=== PATIENT | female | born 1965 | race Caucasian/White ===

== ENCOUNTER 2018-06-26 11:32 | Emergency (ER) | payer BC, MEDICARE ==
--- NOTE | 2018-06-26 12:59 | EDM.PDOC ---
Scribed by Paola Kelly 06/26/18 1242 for Rakesh Fuentes MD ED HPI GENERAL MEDICAL PROBLEM - General Chief Complaint: Fever Stated Complaint: flu [id number] Time Seen by Provider: 06/26/18 11:54 Source of Information: Reports: Patient, RN, RN Notes Reviewed History Limitations: Reports: No Limitations - History of Present Illness INITIAL COMMENTS - FREE TEXT/NARRATIVE: Patient presents to ER with complaint of onset of fever, chills, generalized body aches, clear runny nose, cough and scratchy throat yesterday and worse today. No nausea or vomiting. She is on immunosuppress treatment for RA. Son had similar symptoms last week and she was exposed to him. Duration: Day(s): (1) Location: Reports: Generalized Quality: Reports: Ache Severity: Moderate Improves with: Reports: None Worsens with: Reports: None Context: Reports: Sick Contact Associated Symptoms: Reports: No Other Symptoms Headache Pain Score (Numeric/FACES): 3 - Related Data Allergies Allergy/AdvReac Type Severity Reaction Status Date / Time adhesive tape Allergy Blisters Verified 06/26/18 11:46 doxycycline Allergy unknown Verified 06/26/18 11:46 hydroxychloroquine Allergy unknown Verified 06/26/18 11:46 infliximab [From Remicade] Allergy Rash Verified 06/26/18 11:46 prednisone Allergy Other Verified 06/26/18 11:46 sertraline Allergy unknown Verified 06/26/18 11:46 tocilizumab Allergy Swelling Verified 06/26/18 11:46 Home Meds: Home Meds Acyclovir [Zovirax] 400 mg PO DAILY 06/26/18 [History] Amitriptyline [Elavil] 50 mg PO BEDTIME 06/26/18 [History] Aspirin [Halfprin] 81 mg PO DAILY 06/26/18 [History] Atenolol 25 mg PO DAILY 06/26/18 [History] Fish Oil/DHA/EPA [Fish Oil 1,200 MG] 1,600 mg PO DAILY 06/26/18 [History] Pantoprazole [ProTONIX] 40 mg PO ASDIRECTED 06/26/18 [History] Tofacitinib Citrate [Xeljanz Xr] 11 mg PO DAILY 06/26/18 [History] atorvaSTATin [Lipitor] 20 mg PO BEDTIME 06/26/18 [History] Past Medical History Cardiovascular History: Reports: High Cholesterol, Hypertension Gastrointestinal History: Reports: GERD Musculoskeletal History: Reports: RA Social & Family History - Family History Family Medical History: Noncontributory - Tobacco Use Smoking Status *Q: Never Smoker - Alcohol Use Alcohol Use History: No - Recreational Drug Use Recreational Drug Use: No - Living Situation & Occupation Living situation: Reports: with Family ED ROS GENERAL - Review of Systems Review Of Systems: ROS reveals no pertinent complaints other than HPI. ED EXAM, GENERAL - Physical Exam Exam: See Below Exam Limited By: No Limitations General Appearance: Alert, WD/WN, No Apparent Distress, Other (Acutely ill, but non-toxic appearing) Eye Exam: Bilateral Eye: Normal Inspection Ears: Normal External Exam, Normal Canal, Hearing Grossly Normal, Normal TMs Nose: Clear Rhinorrhea, Other (Small amount of dried blood in nare.) Throat/Mouth: Normal Inspection, Normal Lips, Normal Teeth, Normal Gums, Normal Oropharynx, Normal Voice, No Airway Compromise, Other (Clear postnasal drip) Head: Atraumatic, Normocephalic Neck: Normal Inspection, Supple, Non-Tender, Full Range of Motion Respiratory/Chest: No Respiratory Distress, No Accessory Muscle Use, Chest Non- Tender, Crackles Cardiovascular: Regular Rate, Rhythm, No Edema, Tachycardia GI/Abdominal: Normal Bowel Sounds, Soft, Non-Tender, No Distention Back Exam: Normal Inspection Extremities: Normal Inspection, Normal Range of Motion, Non-Tender, Normal Capillary Refill, No Pedal Edema Neurological: Alert, Oriented, CN II-XII Intact, Normal Cognition, Normal Gait, No Motor/Sensory Deficits Psychiatric: Normal Affect, Normal Mood Skin Exam: Warm, Dry, Intact, Normal Color, No Rash Course - Vital Signs Last Recorded V/S: Last Vital Signs Temp 37.3 C 06/26/18 11:38 Pulse 107 H 06/26/18 11:52 Resp 16 06/26/18 11:52 BP 109/76 06/26/18 11:52 Pulse Ox 96 06/26/18 11:52 - Orders/Labs/Meds Orders: Active Orders 24 hr Category Date Time Status CULTURE STREP A CONFIRMATION [RM] Stat Lab 06/26/18 12:05 Results STREP SCRN A RAPID W CULT CONF [RM] Stat Lab 06/26/18 12:05 Results Labs: Rapid strep: Negative. Departure - Departure Time of Disposition: 12:37 Disposition: Home, Self-Care 01 Condition: Good Clinical Impression: Influenza, Epistaxis - Discharge Information *PRESCRIPTION DRUG MONITORING PROGRAM REVIEWED*: Not Applicable *COPY OF PRESCRIPTION DRUG MONITORING REPORT IN PATIENT SEDA: Not Applicable Instructions: Influenza, Adult, [id number], Nosebleed, Adult Referrals: PCP,None [Primary Care Provider] - Forms: ED Department Discharge Additional Instructions: Rx: Tamiflu 75mg Use over the counter Acetaminophen (Tylenol) or Ibuprofen (Motrin/Advil) as needed for fevers (follow directions on package label for dosing and precautions ). Rest, and drink plenty of fluids. If nose bleeds again use 2 large sprays of over the counter Afrin spray and pinch your nose with firm pressure for at least 15 minutes. If bleeding doesn't stop within 30 minutes then return to the ER. Follow up in clinic for recheck if fever and viral symptoms do not resolve in the next 10 days. Return to ER if any breathing difficulties develop. - My Orders Last 24 Hours: My Active Orders 06/26/18 12:05 CULTURE STREP A CONFIRMATION [RM] Stat STREP SCRN A RAPID W CULT CONF [RM] Stat - Assessment/Plan Last 24 Hours: My Active Orders 06/26/18 12:05 CULTURE STREP A CONFIRMATION [RM] Stat STREP SCRN A RAPID W CULT CONF [RM] Stat I have read and agree with the documentation that has been completed regarding this visit. By signing this record, I attest that the documentation was completed in my physical presence and is an accurate record of the encounter.
== END 2018-06-26 12:59 | disposition home or self-care (01) ==
LOC: DL.ED 11:32
DX: J11.1 Influenza due to unidentified influenza virus with other respiratory manifestations (principal); R04.0 Epistaxis; E78.00 Pure hypercholesterolemia, unspecified; I10 Essential (primary) hypertension; K21.9 Gastro-esophageal reflux disease without esophagitis; Z88.8 Allergy status to other drugs, medicaments and biological substances; Z88.1 Allergy status to other antibiotic agents; Z79.899 Other long term (current) drug therapy
CPT/HCPCS: 87081; 87430; 99284

== ENCOUNTER 2020-05-28 14:23 | Inpatient (IN) | payer BC, MEDICARE ==
[2020-05-28 15:34] LABS: ANION GAP 15.1 mEq/L (7-13); CHLORIDE,CL 99 mmol/L (98-107); SODIUM,NA 134 mmol/L (136-145)
--- NOTE | 2020-05-28 16:10 | EDM.PDOC ---
ED HPI GENERAL MEDICAL PROBLEM - General Chief Complaint: Respiratory Problem Stated Complaint: SENT FROM [facility] Time Seen by Provider: 05/28/20 14:25 Source of Information: Reports: Patient, RN, RN Notes Reviewed History Limitations: Reports: No Limitations - History of Present Illness INITIAL COMMENTS - FREE TEXT/NARRATIVE: Patient is a 55-year-old female who presents to ER from [facility] with complaint of shortness of breath. Patient states COVD symptoms that began on 05/20/20 and tested on 05/21/20. On 05/23/20 patient was seen in the ER for COVID, had chest CT that day. Patient presents to clinic today with increased shortness of breath. 02 sats 87-89.1 on room air--not on 02 at baseline. States no abdominal pain, denies any bloody stool since 05/23/20. She has shortness of breath, chest pains from time to time. No fever, chills, nausea, vomiting and diarrhea. Onset: Gradual Duration: Getting Worse Location: Reports: Generalized Quality: Reports: Ache Severity: Severe Improves with: Reports: None Worsens with: Reports: None Associated Symptoms: Reports: No Other Symptoms - Related Data Allergies Allergy/AdvReac Type Severity Reaction Status Date / Time adhesive tape Allergy Blisters Verified 05/28/20 16:16 doxycycline Allergy Rash Verified 05/28/20 16:16 infliximab [From Remicade] Allergy Anaphylactic Verified 05/28/20 16:16 Shock tocilizumab Allergy Anaphylactic Verified 05/28/20 16:16 Shock hydroxychloroquine AdvReac increased Verified 05/28/20 16:16 liver enzymes prednisone AdvReac Other Verified 05/28/20 16:16 sertraline AdvReac Headache Verified 05/28/20 16:16 Home Meds: Home Meds Acyclovir [Zovirax] 400 mg PO DAILY 06/26/18 [History] Amitriptyline [Elavil] 50 mg PO BEDTIME 06/26/18 [History] Aspirin [Halfprin] 81 mg PO DAILY 06/26/18 [History] Fish Oil/DHA/EPA [Fish Oil 1,200 MG] 1,600 mg PO DAILY 06/26/18 [History] Tofacitinib Citrate [Xeljanz Xr] 11 mg PO DAILY 06/26/18 [History] atenoloL [Atenolol] 25 mg PO DAILY 06/26/18 [History] Budesonide [Pulmicort Flexhaler] 90 mcg INH BID 05/28/20 [History] Famotidine [Pepcid] 40 mg PO DAILY 05/28/20 [History] Ondansetron [Ondansetron ODT] 4 mg PO Q8HR PRN 05/28/20 [History] Rosuvastatin Calcium [Crestor] 40 mg PO DAILY 05/28/20 [History] Past Medical History HEENT History: Reports: None Cardiovascular History: Reports: High Cholesterol, Hypertension Other Cardiovascular History: has a rapid pulse and low blood pressure Respiratory History: Reports: Bronchitis, Recurrent, Pneumonia, Recurrent Gastrointestinal History: Reports: GERD, Hemorrhoids Genitourinary History: Reports: None Musculoskeletal History: Reports: RA Neurological History: Reports: None Psychiatric History: Reports: None Endocrine/Metabolic History: Reports: None Hematologic History: Reports: None Immunologic History: Reports: None Oncologic (Cancer) History: Reports: None Dermatologic History: Reports: None - Infectious Disease History Infectious Disease History: Reports: Chicken Pox, Novel Coronavirus, Shingles - Past Surgical History Head Surgeries/Procedures: Reports: None GI Surgical History: Reports: Colonoscopy Female Surgical History: Reports: Section, Hysterectomy Other Female Surgeries/Procedures: miscarriage Social & Family History - Family History Family Medical History: No Pertinent Family History - Tobacco Use Tobacco Use Status *Q: Never Tobacco User - Caffeine Use Caffeine Use: Reports: None Other Caffeine Use: vickie - Recreational Drug Use Recreational Drug Use: No - Living Situation & Occupation Living situation: Reports: with Family ED ROS GENERAL - Review of Systems Review Of Systems: Comprehensive ROS is negative, except as noted in HPI. ED EXAM, GENERAL - Physical Exam Exam: See Below Exam Limited By: No Limitations General Appearance: Alert, WD/WN, No Apparent Distress Eye Exam: Bilateral Eye: EOMI, Normal Inspection, PERRL Ears: Normal External Exam, Normal Canal, Hearing Grossly Normal, Normal TMs Nose: Normal Inspection, Normal Mucosa, No Blood Throat/Mouth: Normal Inspection, Normal Lips, Normal Teeth, Normal Gums, Normal Oropharynx, Normal Voice, No Airway Compromise Head: Atraumatic, Normocephalic Neck: Normal Inspection, Supple, Non-Tender, Full Range of Motion Respiratory/Chest: Crackles (bases bilaterally) Cardiovascular: Normal Peripheral Pulses, Regular Rate, Rhythm, No Edema, No Gallop, No JVD, No Murmur, No Rub GI/Abdominal: Normal Bowel Sounds, Soft, Non-Tender, No Organomegaly, No Distention, No Abnormal Bruit, No Mass (Female) Exam: Deferred Rectal (Female) Exam: Deferred Back Exam: Normal Inspection, Full Range of Motion, NT Extremities: Normal Inspection, Normal Range of Motion, Non-Tender, Normal Capillary Refill, No Pedal Edema Neurological: Alert, Oriented, CN II-XII Intact, Normal Cognition, Normal Gait, Normal Reflexes, No Motor/Sensory Deficits Psychiatric: Normal Affect, Normal Mood Skin Exam: Warm, Dry, Intact, Normal Color, No Rash Lymphatic: No Adenopathy Course - Vital Signs Last Recorded V/S: Last Vital Signs Temp 97.1 F 05/28/20 16:26 Pulse 91 05/28/20 16:26 Resp 22 H 05/28/20 16:26 BP 114/72 05/28/20 16:26 Pulse Ox 95 05/28/20 16:26 - Orders/Labs/Meds Orders: Active Orders 24 hr Category Date Time Status CULTURE BLOOD [BC] Stat Lab 05/28/20 14:45 Received CULTURE BLOOD [BC] Stat Lab 05/28/20 14:50 Received UA W/STEWART RFLX IF INDICATED [URIN] Stat Lab 05/28/20 14:38 Ordered Blood Culture x2 Reflex Set [OM.PC] Stat Oth 05/28/20 14:38 Ordered Medication Orders Acetaminophen (Tylenol) 650 mg PO Q4H PRN PRN Reason: Pain (Mild 1-3)/fever Albuterol (Proventil Hfa) 0 gm INH QID [facility] Amitriptyline HCl (Elavil) 50 mg PO BEDTIME [facility] Aspirin (Halfprin) 81 mg PO DAILY [facility] Atenolol (Tenormin) 25 mg PO DAILY [facility] Dexamethasone (Decadron) 6 mg IVPUSH DAILY [facility] Stop: 06/06/20 09:01 Docusate Sodium (Colace) 100 mg PO BID PRN PRN Reason: Constipation Enoxaparin Sodium (Lovenox) 40 mg SUBCUT DAILY [facility] Famotidine (Pepcid) 40 mg PO DAILY [facility] Sodium Chloride (Normal Saline) 1,000 mls @ 75 mls/hr IV ASDIRECTED [facility] Remdesivir 100 mg/ Sodium (Chloride) 100 mls @ 100 mls/hr IV Q24H [facility] Stop: 06/01/20 20:59 Levofloxacin/Dextrose 500 mg/ (Premix) 100 mls @ 100 mls/hr IV Q24H [facility] Remdesivir 200 mg/ Sodium (Chloride) 210 mls @ 210 mls/hr IV ONETIME ONE Stop: 05/28/20 20:59 Non-Formulary Medication (Budesonide [Pulmicort Flexhaler]) 90 mcg INH BID [facility] Ondansetron HCl (Zofran Odt) 4 mg PO Q4H PRN PRN Reason: nausea, able to take PO Oxycodone HCl (Oxycodone) 5 mg PO Q4H PRN PRN Reason: Pain (moderate 4-6) Labs: Laboratory Tests 05/28/20 05/28/20 05/28/20 Range/Units 14:50 14:50 14:50 WBC 9.4 (5.0-10.0) 10^3/uL RBC 4.10 L (4.2-5.4) 10^6/uL Hgb 11.9 L (12.0-16.0) g/dL Hct 34.7 L (37.0-47.0) % MCV 84.6 (80-100) fL MCH 29.0 (27.0-34.0) pg MCHC 34.3 (33.0-35.0) g/dL Plt Count 247 D (150-450) 10^3/uL Neut % (Auto) 81.6 H (42.2-75.2) % Lymph % (Auto) 5.3 L (20.5-50.1) % Preston % (Auto) 13.0 H (2-8) % Eos % (Auto) 0.0 L (1.0-3.0) % Baso % (Auto) 0.1 (0.0-1.0) % Add Manual Diff Yes Neutrophils % (Manual) 77 H (42-75) % Band Neutrophils % 7 % Lymphocytes % (Manual) 6 L (20-50) % Monocytes % (Manual) 9 H (2-8) % Metamyelocytes % 1 Polychromasia 1+ slight PT 9.8 (9.0-12.0) SEC INR 1.0 (0.9-1.2) D-Dimer, Quantitative (0-400) ng/mL Sodium 134 L (136-145) mmol/L Potassium 4.1 (3.5-5.1) mmol/L Chloride 99 (98-107) mmol/L Carbon Dioxide 24 (21-32) mmol/L Anion Gap 15.1 H (7-13) mEq/L BUN 16 (7-18) mg/dL Creatinine 0.93 (0.55-1.02) mg/dL Est Cr Clr Drug Dosing 73.04 mL/min Estimated GFR (MDRD) > 60 BUN/Creatinine Ratio 17.2 (No establ ref range) Glucose 107 H (74-99) mg/dL Lactic Acid (0.4-2.0) mmol/L Calcium 8.5 (8.5-10.1) mg/dL Total Bilirubin 0.4 (0.2-1.0) mg/dL AST 33 (15-37) U/L ALT 71 H (14-59) U/L Alkaline Phosphatase 64 (46-116) U/L Lactate Dehydrogenase 304 H (81-234) U/L Troponin I < 0.017 (0.000-0.056) ng/mL C-Reactive Protein 4.4 H (0.0-0.9) mg/dL B-Natriuretic Peptide 15 (0-100) pg/ml Total Protein 6.9 (6.4-8.2) g/dL Albumin 3.1 L (3.4-5.0) g/dL Globulin 3.8 Albumin/Globulin Ratio 0.82 05/28/20 05/28/20 Range/Units 14:50 14:50 WBC (5.0-10.0) 10^3/uL RBC (4.2-5.4) 10^6/uL Hgb (12.0-16.0) g/dL Hct (37.0-47.0) % MCV (80-100) fL MCH (27.0-34.0) pg MCHC (33.0-35.0) g/dL Plt Count (150-450) 10^3/uL Neut % (Auto) (42.2-75.2) % Lymph % (Auto) (20.5-50.1) % Preston % (Auto) (2-8) % Eos % (Auto) (1.0-3.0) % Baso % (Auto) (0.0-1.0) % Add Manual Diff Neutrophils % (Manual) (42-75) % Band Neutrophils % % Lymphocytes % (Manual) (20-50) % Monocytes % (Manual) (2-8) % Metamyelocytes % Polychromasia PT (9.0-12.0) SEC INR (0.9-1.2) D-Dimer, Quantitative 855 H (0-400) ng/mL Sodium (136-145) mmol/L Potassium (3.5-5.1) mmol/L Chloride (98-107) mmol/L Carbon Dioxide (21-32) mmol/L Anion Gap (7-13) mEq/L BUN (7-18) mg/dL Creatinine (0.55-1.02) mg/dL Est Cr Clr Drug Dosing mL/min Estimated GFR (MDRD) BUN/Creatinine Ratio (No establ ref range) Glucose (74-99) mg/dL Lactic Acid 1.2 (0.4-2.0) mmol/L Calcium (8.5-10.1) mg/dL Total Bilirubin (0.2-1.0) mg/dL AST (15-37) U/L ALT (14-59) U/L Alkaline Phosphatase (46-116) U/L Lactate Dehydrogenase (81-234) U/L Troponin I (0.000-0.056) ng/mL C-Reactive Protein (0.0-0.9) mg/dL B-Natriuretic Peptide (0-100) pg/ml Total Protein (6.4-8.2) g/dL Albumin (3.4-5.0) g/dL Globulin Albumin/Globulin Ratio Meds: Medications Generic Name Dose Route Start Last Admin Trade Name Freq PRN Reason Stop Dose Admin Acetaminophen 650 mg 05/28/20 16:26 Tylenol PO Q4H PRN Pain (Mild 1-3)/fever Albuterol 0 gm 05/28/20 17:00 Proventil Hfa INH QID [facility] Amitriptyline HCl 50 mg 05/28/20 21:00 Elavil PO BEDTIME [facility] Aspirin 81 mg 05/29/20 09:00 Halfprin PO DAILY [facility] Atenolol 25 mg 05/29/20 09:00 Tenormin PO DAILY [facility] Dexamethasone 6 mg 05/28/20 16:45 Decadron IVPUSH 06/06/20 09:01 DAILY [facility] Docusate Sodium 100 mg 05/28/20 16:26 Colace PO BID PRN Constipation Enoxaparin Sodium 40 mg 05/29/20 09:00 Lovenox SUBCUT DAILY [facility] Famotidine 40 mg 05/29/20 09:00 Pepcid PO DAILY [facility] Sodium Chloride 1,000 mls @ 75 mls/hr 05/28/20 16:30 Normal Saline IV ASDIRECTED [facility] Remdesivir 100 mg/ Sodium 100 mls @ 100 mls/hr 05/29/20 20:00 Chloride IV 06/01/20 20:59 Q24H [facility] Levofloxacin/Dextrose 500 mg/ 100 mls @ 100 mls/hr 05/28/20 17:00 Premix IV Q24H [facility] Remdesivir 200 mg/ Sodium 210 mls @ 210 mls/hr 05/28/20 20:00 Chloride IV 05/28/20 20:59 ONETIME ONE Non-Formulary Medication 90 mcg 05/28/20 21:00 Budesonide [Pulmicort Flexhaler] INH BID [facility] Ondansetron HCl 4 mg 05/28/20 16:26 Zofran Odt PO Q4H PRN nausea, able to take PO Oxycodone HCl 5 mg 05/28/20 16:26 Oxycodone PO Q4H PRN Pain (moderate 4-6) Discontinued Medications Generic Name Dose Route Start Last Admin Trade Name Freq PRN Reason Stop Dose Admin Remdesivir 200 mg/ Sodium 210 mls @ 210 mls/hr 05/28/20 16:32 05/28/20 17:19 Chloride IV 05/28/20 16:33 Not Given ONETIME ONE - Re-Assessments/Exams Free Text/Narrative Re-Assessment/Exam: 05/28/20 17:37 Discussed patient case with Dr. Brown who agreed to accept the patient for inpatient acute admission. Departure - Departure Time of Disposition: 16:17 Disposition: Admitted As Inpatient 65 Condition: Fair Clinical Impression: COVID-19 virus infection - Discharge Information *PRESCRIPTION DRUG MONITORING PROGRAM REVIEWED*: No *COPY OF PRESCRIPTION DRUG MONITORING REPORT IN PATIENT SEDA: No Sepsis Event Note (ED) - Evaluation Sepsis Screening Result: Possible Sepsis Risk - Focused Exam Vital Signs: Vital Signs Temp Pulse Resp BP Pulse Ox 05/28/20 14:09 97.6 F 103 H 20 109/65 93 L - My Orders Last 24 Hours: My Active Orders 05/28/20 14:38 UA W/STEWART RFLX IF INDICATED [URIN] Stat Blood Culture x2 Reflex Set [OM.PC] Stat 05/28/20 14:45 CULTURE BLOOD [BC] Stat 05/28/20 14:50 CULTURE BLOOD [BC] Stat - Assessment/Plan Last 24 Hours: My Active Orders 05/28/20 14:38 UA W/STEWART RFLX IF INDICATED [URIN] Stat Blood Culture x2 Reflex Set [OM.PC] Stat 05/28/20 14:45 CULTURE BLOOD [BC] Stat 05/28/20 14:50 CULTURE BLOOD [BC] Stat
[2020-05-28] MEDS ORDERED: Ondansetron 4 MG Tab.DIS PO PRN (16:26)
[2020-05-28] MEDS ORDERED: Docusate Sodium 100 MG Cap PO PRN (16:26)
[2020-05-28] MEDS ORDERED: Acetaminophen 325 MG Tab PO PRN (16:26)
[2020-05-28] MEDS ORDERED: oxyCODONE 5 MG Tab PO PRN (16:26)
[2020-05-28] MEDS: Sodium Chloride 0.9% 1,000 ML IV SCH (18:08)
[2020-05-28] MEDS: Levofloxacin/Dextrose 5%-Water 500 MG in Premix Bag 1 BAG IV SCH (18:08)
[2020-05-28] MEDS: Dexamethasone 4 MG/ML SDV IVPUSH SCH (18:08)
[2020-05-28] MEDS: Albuterol 6.7 GM Inhaler INH SCH ×2 (18:11→20:07)
[2020-05-28] MEDS ORDERED: Water For Injection, Sterile 40 ML ONE (19:33)
[2020-05-28] MEDS: Amitriptyline 25 MG Tab PO SCH (20:06)
--- NOTE | 2020-05-28 21:04 | HP ---
CHIEF COMPLAINT: Shortness of breath and hypoxemia. HISTORY OF PRESENT ILLNESS: The patient is a 55-year-old female who was admitted to the emergency room because the patient was sent from [facility] today because the patient is complaining of shortness of breath and her oxygen saturation on room air is in the upper 80s. The patient tested positive for COVID last 05/21 after she started having some symptoms starting 05/20 with fever, cough, muscle aches and pains, and also with hematochezia. The patient was seen in the emergency room on 05/23, and she had a CAT scan of the abdomen, which showed some colitis. She also had a CAT scan of the chest, which showed ground-glass appearance compatible with COVID pneumonia and there were no signs of pulmonary embolism. She was given Decadron 10 mg IV x1 and also Flagyl and followed up with Dr. Luciano at the clinic. Her blood in the stool and diarrhea improved, but now she is more short of breath with cough and with desaturation on room air in the upper 80s. Because of this, she was then admitted for further evaluation and management. PAST MEDICAL HISTORY: Remarkable for rheumatoid arthritis, recent colitis, hypertension, hypercholesterolemia. FAMILY HISTORY: Noncontributory. SOCIAL HISTORY: Nonalcohol drinker, nonsmoker. HOME MEDICATIONS: Acyclovir, amitriptyline, aspirin, fish oil, Protonix, tofacitinib, atenolol, and Lipitor. ALLERGIES: Adhesive tape, doxycycline, hydroxychloroquine, Remicade, prednisone, sertraline, tocilizumab. REVIEW OF SYSTEMS: As in HPI. The rest of the review of systems is negative. OBJECTIVE: Vital Signs: Blood pressure is 109/65, pulse of 103, temperature of 97.6, respirations 20, saturation is 93% on 2 L per nasal cannula. SHEENT: Normocephalic. There are pink palpebral conjunctivae. Sclerae anicteric. Neck: No JVD. No lymphadenopathy. Heart: Regular. Slightly tachycardic. Lungs: Have diminished breath sounds in both bases, but no significant crackles, no wheezing. Abdomen: Soft, nontender. Bowel sounds positive. Extremities: Negative for any pedal edema. No calf tenderness. LABORATORY WORKUP: 05/28/2020, WBC is 9.4, hemoglobin is 11.9, hematocrit is 34.7, platelets are 247, neutrophils are 81. Protime is 9.8, INR 1.0. D-dimer is 855. Sodium is 134, anion gap of 15, glucose is 107, ALT of 71. The rest of the panel unremarkable. LDH is 304. Troponin is less than 0.017. BNP is 15. CAT scan of the chest that was done on May 23, 2020, showed post inflammatory sequelae of COVID pneumonia, low probability of pulmonary embolism. There are no signs of heart failure, lung malignancy, or acute lobar pneumonia. ADMITTING DIAGNOSES: 1. Coronavirus disease pneumonia. 2. Hypoxemia secondary to coronavirus disease pneumonia. 3. Recent colitis. 4. Hypertension. 5. Dyslipidemia. 6. Rheumatoid arthritis. TREATMENT PLAN: The patient is going to be admitted to COVID isolation unit. She will be empirically started on IV dexamethasone and will also discuss with her remdesivir IV and she will be on DVT prophylaxis and she will be resumed on her home medication and the rest of the management as necessary. The patient is a full code. [facility] /[id number]
[2020-05-28] MEDS: Atenolol 25 MG Tab PO SCH (21:53)
[2020-05-29 07:07] LABS: ANION GAP 10.7 mEq/L (7-13); CHLORIDE,CL 102 mmol/L (98-107); SODIUM,NA 137 mmol/L (136-145)
--- NOTE | 2020-05-29 07:20 | HP ---
CONTINUATION: PLAN: I spoke with the patient and provided information about remdesivir treatment as being under emergency use authorization and not fully FDA approved or reviewed. I discussed potential side effects including liver abnormalities and also discussed other potential treatment options that are currently not FDA approved to treat COVID-19. The patient gives permission for remdesivir. [facility] /[id number]
[2020-05-29] MEDS: Sodium Chloride 0.9% 1,000 ML IV SCH (08:22)
[2020-05-29] MEDS: Aspirin 81 MG Tab.EC PO SCH (08:28)
[2020-05-29] MEDS: Dexamethasone 4 MG/ML SDV IVPUSH SCH (08:29)
[2020-05-29] MEDS: Famotidine 20 MG Tab PO SCH (08:29)
[2020-05-29] MEDS: Enoxaparin 40 MG/0.4 ML Syringe SUBCUT SCH (08:30)
[2020-05-29] MEDS: Albuterol 6.7 GM Inhaler INH SCH ×4 (08:34→21:52)
[2020-05-29] MEDS ORDERED: Benzonatate 100 MG Cap PO PRN (09:14)
[2020-05-29] MEDS: Acyclovir 200 MG Cap PO SCH (10:19)
--- NOTE | 2020-05-29 11:19 | PN ---
DATE: 05/29/2020 SUBJECTIVE: The patient still complaining of shortness of breath and also still has paroxysms of cough with deep inspiration. The patient is still requiring oxygen to keep her saturation above 90. The patient denies though any fever or chills, chest pain; denies any diarrhea or hematochezia or any other complaints. LABORATORY DATA: Lab workup this morning, CBC; WBC is 9.1, hemoglobin is 12, hematocrit is 35.6, and platelets 248. Comp panel; glucose is 119, calcium 8.1, ALT of 68, total protein is 5.9, and albumin is 2.9. The rest of the panel unremarkable. OBJECTIVE: Vital Signs: Blood pressure is 117/67, pulse 63, respirations 20, temperature of 97.4, and saturation is 90% on 2.5 L per nasal cannula. Heart: Regular rate and rhythm. No gallops, no rubs. Lungs: Diminished breath sounds on both bases, but no significant crackles, no wheezing. Abdomen: Soft, nontender. Bowel sounds positive. Extremities: Negative for any pedal edema. No calf tenderness. MEDICATIONS: Reviewed. PLAN: We will continue with IV dexamethasone and levofloxacin as well as remdesivir IV and the rest of her management. I am also going to restart her acyclovir as at home and this is for herpes exacerbation. We will also put her on Tessalon Perles for symptomatic cough relief. We will use her budesonide as at home and can use her own medication as this is not in the formulary. [facility] /[id number]
[2020-05-29] MEDS: BUDESONIDE 90 MCG INH SCH ×2 (12:19→21:53)
[2020-05-29] MEDS: Levofloxacin/Dextrose 5%-Water 500 MG in Premix Bag 1 BAG IV SCH (17:24)
[2020-05-29] MEDS: REMDESIVIR 100 MG in Sodium Chloride 0.9% 100 ML IV SCH (20:27)
[2020-05-29] MEDS: Atenolol 25 MG Tab PO SCH (20:35)
[2020-05-29] MEDS: Amitriptyline 25 MG Tab PO SCH (20:36)
[2020-05-30] MEDS: Acyclovir 200 MG Cap PO SCH (08:11)
[2020-05-30] MEDS: Famotidine 20 MG Tab PO SCH (08:11)
[2020-05-30] MEDS: Aspirin 81 MG Tab.EC PO SCH (08:12)
[2020-05-30] MEDS: Dexamethasone 4 MG/ML SDV IVPUSH SCH (08:13)
[2020-05-30] MEDS: Enoxaparin 40 MG/0.4 ML Syringe SUBCUT SCH (08:16)
[2020-05-30] MEDS: BUDESONIDE 90 MCG INH SCH ×2 (10:22→21:59)
[2020-05-30] MEDS: Albuterol 6.7 GM Inhaler INH SCH ×4 (10:22→21:58)
--- NOTE | 2020-05-30 11:29 | PCM.PN ---
- General Info Date of Service: 05/30/20 Subjective Update: . The patient indicated that she still feels short of breath when she ambulates When she is at rest, she has no major complaint. Continues to cough. No fever no chills. - Review of Systems General: Reports: Weakness, Fatigue Pulmonary: Reports: Shortness of Breath, Cough Cardiovascular: Reports: Lightheadedness Musculoskeletal: Reports: No Symptoms - Patient Data Vitals - Most Recent: Last Vital Signs Temp 36.5 C 05/30/20 08:00 Pulse 69 05/30/20 08:00 Resp 20 05/30/20 08:00 BP 110/63 05/30/20 08:00 Pulse Ox 93 L 05/30/20 08:00 Weight - Most Recent: 84.141 kg I&O - Last 24 Hours: Intake & Output 05/29/20 05/30/20 05/30/20 22:59 06:59 14:59 Intake Total 2702 200 250 Balance 2702 200 250 Lab Results Last 24 Hours: Laboratory Results - last 24 hr 05/30/20 Range/Units 06:25 Total Bilirubin 0.2 (0.2-1.0) mg/dL Direct Bilirubin 0.1 (0.0-0.2) mg/dL Indirect Bilirubin 0.1 AST 138 H (15-37) U/L ALT 220 H (14-59) U/L Alkaline Phosphatase 69 (46-116) U/L Total Protein 5.8 L (6.4-8.2) g/dL Albumin 2.8 L (3.4-5.0) g/dL Globulin 3.0 Albumin/Globulin Ratio 0.93 Chava Results Last 24 Hours: Microbiology 05/28/20 14:50 Aerobic Blood Culture - Preliminary Blood - Arm, Right NO GROWTH AFTER 1 DAY Anaerobic Blood Culture - Preliminary NO GROWTH AFTER 1 DAY 05/28/20 14:45 Aerobic Blood Culture - Preliminary Blood - Arm, Left NO GROWTH AFTER 1 DAY Anaerobic Blood Culture - Preliminary NO GROWTH AFTER 1 DAY Med Orders - Current: Current Medications Acetaminophen (Tylenol) 650 mg PO Q4H PRN PRN Reason: Pain (Mild 1-3)/fever Acyclovir (Zovirax) 400 mg PO DAILY [facility] Last Admin: 05/30/20 08:11 Dose: 400 mg Documented by: Albuterol (Proventil Hfa) 0 gm INH QID [facility] Last Admin: 05/30/20 10:22 Dose: 2 puff Documented by: Amitriptyline HCl (Elavil) 50 mg PO BEDTIME [facility] Last Admin: 05/29/20 20:36 Dose: 50 mg Documented by: Aspirin (Halfprin) 81 mg PO DAILY [facility] Last Admin: 05/30/20 08:12 Dose: 81 mg Documented by: Atenolol (Tenormin) 25 mg PO BEDTIME [facility] Last Admin: 05/29/20 20:35 Dose: 25 mg Documented by: Benzonatate (Tessalon Perles) 100 mg PO TID PRN PRN Reason: Cough Last Admin: 05/29/20 10:20 Dose: 100 mg Documented by: Dexamethasone (Decadron) 6 mg IVPUSH DAILY [facility] Stop: 06/06/20 09:01 Last Admin: 05/30/20 08:13 Dose: 6 mg Documented by: Docusate Sodium (Colace) 100 mg PO BID PRN PRN Reason: Constipation Last Admin: 05/29/20 15:53 Dose: 100 mg Documented by: Enoxaparin Sodium (Lovenox) 40 mg SUBCUT DAILY [facility] Last Admin: 05/30/20 08:16 Dose: 40 mg Documented by: Famotidine (Pepcid) 40 mg PO DAILY [facility] Last Admin: 05/30/20 08:11 Dose: 40 mg Documented by: Sodium Chloride (Normal Saline) 1,000 mls @ 75 mls/hr IV ASDIRECTED [facility] Last Infusion: 05/29/20 21:50 Dose: Infused Documented by: Remdesivir 100 mg/ Sodium (Chloride) 100 mls @ 100 mls/hr IV Q24H [facility] Stop: 06/01/20 20:59 Last Infusion: 05/29/20 21:30 Dose: Infused Documented by: Levofloxacin/Dextrose 500 mg/ (Premix) 100 mls @ 100 mls/hr IV Q24H [facility] Last Infusion: 05/29/20 19:16 Dose: Infused Documented by: Budesonide [ Pulmicort Flexhaler] 90 Mcg Pt Own Med 90 mcg INH BID [facility] Last Admin: 05/30/20 10:22 Dose: 90 mcg Documented by: Ondansetron HCl (Zofran Odt) 4 mg PO Q4H PRN PRN Reason: nausea, able to take PO Oxycodone HCl (Oxycodone) 5 mg PO Q4H PRN PRN Reason: Pain (moderate 4-6) Last Admin: 05/29/20 15:52 Dose: 5 mg Documented by: Discontinued Medications Remdesivir 200 mg/ Sodium (Chloride) 210 mls @ 210 mls/hr IV ONETIME ONE Stop: 05/28/20 16:33 Last Admin: 05/28/20 17:19 Dose: Not Given Documented by: Remdesivir 200 mg/ Sodium (Chloride) 210 mls @ 210 mls/hr IV ONETIME ONE Stop: 05/28/20 20:59 Last Admin: 05/28/20 19:57 Dose: 210 mls/hr Documented by: Sterile Water (Sterile Water For Injection) Confirm Administered Dose 40 mls @ as directed .ROUTE .STK-MED ONE Stop: 05/28/20 19:34 Last Admin: 05/28/20 19:51 Dose: Not Given Documented by: - Exam Quality Assessment: Supplemental Oxygen General: Alert, Cooperative Neck: Supple Lungs: Decreased Breath Sounds Cardiovascular: Regular Rate, Regular Rhythm Sepsis Event Note - Evaluation Sepsis Screening Result: No Definite Risk - Focused Exam Vital Signs: Vital Signs Temp Pulse Resp BP Pulse Ox 05/30/20 08:00 36.5 C 69 20 110/63 93 L 05/30/20 05:20 36.3 C 65 20 102/52 L 92 L - Problem List Review Problem List Initiated/Reviewed/Updated: Yes - Plan Plan:: Is a 55-year-old female with medical history of rheumatoid arthritis, hypertension, recent colitis who was admitted with complaint of shortness of breath and was found to be hypoxic. Patient was noted to have COVID-19 pneumonia patient has been treated with levofloxacin #. Acute hypoxemic respiratory failure This is secondary to COVID-19 #. COVID-19 pneumonia Patient has been hypoxic #. Rheumatoid arthritis Asymptomatic at this point 9. Hypertension Blood pressure has been intermittently elevated Plan: Continue levofloxacin Continue Decadron DVT prophylaxis Wean down oxygen as tolerated
[2020-05-30] MEDS: Levofloxacin/Dextrose 5%-Water 500 MG in Premix Bag 1 BAG IV SCH (16:38)
[2020-05-30] MEDS ORDERED: Aluminum Hydroxide/Magnesium Hydroxide/Simethicone Susp 30 ML Cup PO PRN (18:29)
[2020-05-30] MEDS: REMDESIVIR 100 MG in Sodium Chloride 0.9% 100 ML IV SCH (20:31)
[2020-05-30] MEDS: Atenolol 25 MG Tab PO SCH (20:39)
[2020-05-30] MEDS: Amitriptyline 25 MG Tab PO SCH (20:39)
[2020-05-31] MEDS ORDERED: Pantoprazole 40 MG Tab.CR PO SCH (06:00)
[2020-05-31 07:33] LABS: ANION GAP 11.1 mEq/L (7-13)
[2020-05-31] MEDS: Enoxaparin 40 MG/0.4 ML Syringe SUBCUT SCH (08:46)
[2020-05-31] MEDS: Dexamethasone 4 MG/ML SDV IVPUSH SCH (08:47)
[2020-05-31] MEDS: Famotidine 20 MG Tab PO SCH (08:47)
[2020-05-31] MEDS: Acyclovir 200 MG Cap PO SCH (08:47)
[2020-05-31] MEDS: Aspirin 81 MG Tab.EC PO SCH (08:47)
[2020-05-31] MEDS: BUDESONIDE 90 MCG INH SCH ×2 (08:48→21:11)
[2020-05-31] MEDS: Albuterol 6.7 GM Inhaler INH SCH ×4 (08:49→21:10)
--- NOTE | 2020-05-31 09:37 | CR ---
PROCEDURE INFORMATION: Exam: XR Chest, 1 View Exam date and time: 05/31/2020 12:12 AM Age: 55 years old Clinical indication: Other: Covid pneumonia TECHNIQUE: Imaging protocol: XR of the chest Views: 1 view. COMPARISON: CT Chest w Cont 05/23/2020 1:41 PM FINDINGS: Lungs: Patchy peripheral ground-glass lung opacification involving right lower lobe and portions of the lateral right middle lobe. Questionable milder similar opacification in left lower lobe. Pleural space: Normal. Heart/Mediastinum: Normal heart and cardiomediastinal silhouette. Vasculature: Normal pulmonary vessel caliber. Normal aorta. Bones/joints: The bones are intact. IMPRESSION: Patchy bilateral peripheral ground-glass lung opacities/pneumonia, right greater than left. No acute pulmonary edema or pleural effusion.
--- NOTE | 2020-05-31 11:41 | PCM.PN ---
- General Info Date of Service: 05/31/20 Subjective Update: Patient states that she feels worse today. Does not feel comfortable going home today. Still having some shortness of breath Coughing more. However the patient is only needing 1.5 L of oxygen. - Review of Systems General: Reports: Weakness Pulmonary: Reports: Shortness of Breath, Cough Gastrointestinal: Reports: No Symptoms Genitourinary: Reports: No Symptoms - Patient Data Vitals - Most Recent: Last Vital Signs Temp 37.1 C 05/31/20 08:42 Pulse 80 05/31/20 08:42 Resp 20 05/31/20 08:42 BP 93/50 L 05/31/20 08:42 Pulse Ox 95 05/31/20 08:42 Weight - Most Recent: 84.141 kg I&O - Last 24 Hours: Intake & Output 05/30/20 05/31/20 05/31/20 22:59 06:59 14:59 Intake Total 343 100 Balance 343 100 Lab Results Last 24 Hours: Laboratory Results - last 24 hr 05/31/20 05/31/20 05/31/20 Range/Units 06:20 06:20 06:20 WBC 9.2 (5.0-10.0) 10^3/uL RBC 4.15 L (4.2-5.4) 10^6/uL Hgb 11.9 L (12.0-16.0) g/dL Hct 35.6 L (37.0-47.0) % MCV 85.8 (80-100) fL MCH 28.7 (27.0-34.0) pg MCHC 33.4 (33.0-35.0) g/dL Plt Count 267 (150-450) 10^3/uL Sodium 136 (136-145) mmol/L Potassium 4.1 (3.5-5.1) mmol/L Chloride 102 (98-107) mmol/L Carbon Dioxide 27 (21-32) mmol/L Anion Gap 11.1 (7-13) mEq/L BUN 18 (7-18) mg/dL Creatinine 1.02 (0.55-1.02) mg/dL Est Cr Clr Drug Dosing 66.60 mL/min Estimated GFR (MDRD) 56 Glucose 94 (74-99) mg/dL Calcium 8.1 L (8.5-10.1) mg/dL Total Bilirubin 0.3 (0.2-1.0) mg/dL Direct Bilirubin 0.1 (0.0-0.2) mg/dL Indirect Bilirubin 0.2 AST 50 H (15-37) U/L ALT 164 H (14-59) U/L Alkaline Phosphatase 64 (46-116) U/L Total Protein 5.5 L (6.4-8.2) g/dL Albumin 2.7 L (3.4-5.0) g/dL Globulin 2.8 Albumin/Globulin Ratio 0.96 Chava Results Last 24 Hours: Microbiology 05/28/20 14:50 Aerobic Blood Culture - Preliminary Blood - Arm, Right NO GROWTH AFTER 2 DAYS Anaerobic Blood Culture - Preliminary NO GROWTH AFTER 2 DAYS 05/28/20 14:45 Aerobic Blood Culture - Preliminary Blood - Arm, Left NO GROWTH AFTER 2 DAYS Anaerobic Blood Culture - Preliminary NO GROWTH AFTER 2 DAYS Med Orders - Current: Current Medications Acetaminophen (Tylenol) 650 mg PO Q4H PRN PRN Reason: Pain (Mild 1-3)/fever Acyclovir (Zovirax) 400 mg PO DAILY [facility] Last Admin: 05/31/20 08:47 Dose: 400 mg Documented by: Albuterol (Proventil Hfa) 0 gm INH QID [facility] Last Admin: 05/31/20 08:49 Dose: 2 puff Documented by: Amitriptyline HCl (Elavil) 50 mg PO BEDTIME [facility] Last Admin: 05/30/20 20:39 Dose: 50 mg Documented by: Aspirin (Halfprin) 81 mg PO DAILY [facility] Last Admin: 05/31/20 08:47 Dose: 81 mg Documented by: Atenolol (Tenormin) 25 mg PO BEDTIME [facility] Last Admin: 05/30/20 20:39 Dose: 25 mg Documented by: Benzonatate (Tessalon Perles) 100 mg PO TID PRN PRN Reason: Cough Last Admin: 05/29/20 10:20 Dose: 100 mg Documented by: Dexamethasone (Decadron) 6 mg IVPUSH DAILY [facility] Stop: 06/06/20 09:01 Last Admin: 05/31/20 08:47 Dose: 6 mg Documented by: Docusate Sodium (Colace) 100 mg PO BID PRN PRN Reason: Constipation Last Admin: 05/29/20 15:53 Dose: 100 mg Documented by: Enoxaparin Sodium (Lovenox) 40 mg SUBCUT DAILY [facility] Last Admin: 05/31/20 08:46 Dose: 40 mg Documented by: Famotidine (Pepcid) 40 mg PO DAILY [facility] Last Admin: 05/31/20 08:47 Dose: 40 mg Documented by: Remdesivir 100 mg/ Sodium (Chloride) 100 mls @ 100 mls/hr IV Q24H [facility] Stop: 06/01/20 20:59 Last Infusion: 05/30/20 21:55 Dose: Infused Documented by: Levofloxacin/Dextrose 500 mg/ (Premix) 100 mls @ 100 mls/hr IV Q24H [facility] Last Infusion: 05/30/20 17:59 Dose: Infused Documented by: Budesonide [ Pulmicort Flexhaler] 90 Mcg Pt Own Med 90 mcg INH BID [facility] Last Admin: 05/31/20 08:48 Dose: 90 mcg Documented by: Ondansetron HCl (Zofran Odt) 4 mg PO Q4H PRN PRN Reason: nausea, able to take PO Oxycodone HCl (Oxycodone) 5 mg PO Q4H PRN PRN Reason: Pain (moderate 4-6) Last Admin: 05/29/20 15:52 Dose: 5 mg Documented by: Discontinued Medications Al Hydroxide/Mg Hydroxide (Mag-Al Plus) 30 ml PO Q4H PRN PRN Reason: Heartburn Sodium Chloride (Normal Saline) 1,000 mls @ 75 mls/hr IV ASDIRECTED [facility] Last Infusion: 05/29/20 21:50 Dose: Infused Documented by: Remdesivir 200 mg/ Sodium (Chloride) 210 mls @ 210 mls/hr IV ONETIME ONE Stop: 05/28/20 16:33 Last Admin: 05/28/20 17:19 Dose: Not Given Documented by: Remdesivir 200 mg/ Sodium (Chloride) 210 mls @ 210 mls/hr IV ONETIME ONE Stop: 05/28/20 20:59 Last Admin: 05/28/20 19:57 Dose: 210 mls/hr Documented by: Sterile Water (Sterile Water For Injection) Confirm Administered Dose 40 mls @ as directed .ROUTE .STK-MED ONE Stop: 05/28/20 19:34 Last Admin: 05/28/20 19:51 Dose: Not Given Documented by: - Exam Quality Assessment: Supplemental Oxygen General: Alert, Oriented, Cooperative Neck: Supple Lungs: Decreased Breath Sounds Cardiovascular: Regular Rate, Regular Rhythm GI/Abdominal Exam: Normal Bowel Sounds, Soft, Non-Tender, No Organomegaly, No Distention, No Abnormal Bruit, No Mass, Pelvis Stable Extremities: Normal Inspection, Normal Range of Motion, Non-Tender, No Pedal Edema, Normal Capillary Refill Sepsis Event Note - Evaluation Sepsis Screening Result: No Definite Risk - Focused Exam Vital Signs: Vital Signs Temp Pulse Resp BP BP Pulse Ox 05/31/20 08:42 37.1 C 80 20 93/50 L 95 05/31/20 05:18 36.5 C 67 18 96/52 L 94 L - Problem List Review Problem List Initiated/Reviewed/Updated: Yes - My Orders Last 24 Hours: My Active Orders 05/31/20 06:20 PROCALCITONIN [REF] DAILY - Plan Plan:: Is a 55-year-old female with medical history of rheumatoid arthritis, hypertension, recent colitis who was admitted with complaint of shortness of breath and was found to be hypoxic. Patient was noted to have COVID-19 pneum onia patient has been treated with levofloxacin #. Acute hypoxemic respiratory failure This is secondary to COVID-19 #. COVID-19 pneumonia Patient has been hypoxic #. Rheumatoid arthritis Asymptomatic at this point 9. Hypertension Blood pressure has been intermittently elevated Plan: I did proceed to obtain a chest x-ray. It still showed patchy bilateral infiltrates Patient's oxygen need is getting better down to 1.5 L/min Start patient on Robitussin with codeine to help with cough. We will monitor the patient over the next 24 hours and if she continues to do well, I will discharge her home.
[2020-05-31] MEDS: Codeine/guaiFENesin 10-100 MG/5 ML Syrup 5 ML Cup PO SCH ×3 (13:27→21:09)
[2020-05-31] MEDS: Levofloxacin/Dextrose 5%-Water 500 MG in Premix Bag 1 BAG IV SCH (16:09)
[2020-05-31] MEDS: REMDESIVIR 100 MG in Sodium Chloride 0.9% 100 ML IV SCH (21:04)
[2020-05-31] MEDS: Atenolol 25 MG Tab PO SCH (21:08)
[2020-05-31] MEDS: Amitriptyline 25 MG Tab PO SCH (21:09)
[2020-06-01] MEDS: Enoxaparin 40 MG/0.4 ML Syringe SUBCUT SCH (09:01)
[2020-06-01] MEDS: Acyclovir 200 MG Cap PO SCH (09:02)
[2020-06-01] MEDS: Codeine/guaiFENesin 10-100 MG/5 ML Syrup 5 ML Cup PO SCH ×2 (09:02→13:10)
[2020-06-01] MEDS: Aspirin 81 MG Tab.EC PO SCH (09:02)
[2020-06-01] MEDS: Famotidine 20 MG Tab PO SCH (09:02)
[2020-06-01] MEDS: Albuterol 6.7 GM Inhaler INH SCH ×2 (09:04→13:10)
[2020-06-01] MEDS: BUDESONIDE 90 MCG INH SCH (09:04)
[2020-06-01] MEDS: Dexamethasone 4 MG/ML SDV IVPUSH SCH (09:08)
--- NOTE | 2020-06-01 10:16 | PCM.DCSUM1 ---
Discharge Summary - Hospital Course Free Text/Narrative:: Is a 55-year-old female with medical history of rheumatoid arthritis, hypertension, recent colitis who was admitted with complaint of shortness of breath and was found to be hypoxic. Patient was noted to have COVID-19 pneumonia. Patient has also been treated with levofloxacin. However procalcitonin level came back normal suggesting absence of bacterial pneumonia. #. Acute hypoxemic respiratory failure This is secondary to COVID-19 #. COVID-19 pneumonia Patient has been hypoxic #. Rheumatoid arthritis Asymptomatic at this point 9. Hypertension Blood pressure has been intermittently elevated Patient continues to require supplemental oxygen. Will make arrangement for home oxygen 2 L/min. She will follow up with primary care provider as outpatient. Diagnosis: Stroke: No - Discharge Data Discharge Date: 06/01/20 Discharge Disposition: Home, Self-Care 01 Condition: Good - Referral to Home Health Primary Care Physician: Gustabo Luciano MD - Patient Instructions Other/Special Instructions: F/up with PMD in one week - Discharge Plan *PRESCRIPTION DRUG MONITORING PROGRAM REVIEWED*: No *COPY OF PRESCRIPTION DRUG MONITORING REPORT IN PATIENT SEDA: No Prescriptions/Med Rec: dexAMETHasone [Decadron] 6 mg PO DAILY #7 tablet Codeine/guaiFENesin [Robitussin AC] 5 ml PO QID 5 Days cup Home Medications: Home Meds Acyclovir [Zovirax] 400 mg PO DAILY 06/26/18 [History] Amitriptyline [Elavil] 50 mg PO BEDTIME 06/26/18 [History] Aspirin [Halfprin] 81 mg PO DAILY 06/26/18 [History] Fish Oil/DHA/EPA [Fish Oil 1,200 MG] 1,000 mg PO DAILY 06/26/18 [History] Tofacitinib Citrate [Xeljanz Xr] 11 mg PO DAILY 06/26/18 [History] atenoloL [Atenolol] 25 mg PO BEDTIME 06/26/18 [History] Albuterol [Ventolin HFA] 2 puff PO Q6HR PRN 05/28/20 [History] Budesonide [Pulmicort Flexhaler] 90 mcg INH BID 05/28/20 [History] L.acidoph,Paracasei, B.lactis [Probiotic] 2 tab PO DAILY 05/28/20 [History] Melatonin 10 mg PO BEDTIME PRN 05/28/20 [History] Ondansetron [Ondansetron ODT] 4 mg PO Q8HR PRN 05/28/20 [History] Pantoprazole Sodium [Protonix] 40 mg PO DAILY 05/28/20 [History] Polyvinyl Alcohol [Artificial Tears] 2 applic EYEBOTH DAILY PRN 05/28/20 [History] Rosuvastatin [Crestor] 5 mg PO BEDTIME 05/28/20 [History] hydrOXYzine pamoate [Hydroxyzine Pamoate] 25 mg PO DAILY PRN 05/28/20 [History] traMADol [Ultram] 100 mg PO BID 05/28/20 [History] Codeine/guaiFENesin [Robitussin AC] 5 ml PO QID 5 Days cup 06/01/20 [Rx] dexAMETHasone [Decadron] 6 mg PO DAILY #7 tablet 06/01/20 [Rx] Patient Handouts: COVID-19 Frequently Asked Questions, COVID-19: How to Protect Yourself and Others - CDC, Infection Prevention in the Home, Prevent the Spread of COVID-19 if You Are Sick - [facility] [place] Referrals: Gustabo Luciano MD [Primary Care Provider] - - Discharge Summary/Plan Comment DC Time >30 min.: No - Patient Data Vitals - Most Recent: Last Vital Signs Temp 36.6 C 06/01/20 08:59 Pulse 75 06/01/20 08:59 Resp 20 06/01/20 08:59 BP 101/52 L 06/01/20 08:59 Pulse Ox 93 L 06/01/20 09:50 Weight - Most Recent: 84.141 kg I&O - Last 24 hours: Intake & Output 05/31/20 06/01/20 06/01/20 22:59 06:59 14:59 Intake Total 93 250 Balance 93 250 Lab Results - Last 24 hrs: Laboratory Results - last 24 hr 05/31/20 06/01/20 Range/Units 06:20 06:35 Total Bilirubin 0.3 (0.2-1.0) mg/dL Direct Bilirubin 0.1 (0.0-0.2) mg/dL Indirect Bilirubin 0.2 AST 29 (15-37) U/L ALT 143 H (14-59) U/L Alkaline Phosphatase 75 (46-116) U/L Total Protein 6.2 L (6.4-8.2) g/dL Albumin 2.8 L (3.4-5.0) g/dL Globulin 3.4 Albumin/Globulin Ratio 0.82 Procalcitonin 0.08 ng/mL [facility] Results - Last 24 hrs: Microbiology 05/28/20 14:50 Aerobic Blood Culture - Preliminary Blood - Arm, Right NO GROWTH AFTER 3 DAYS Anaerobic Blood Culture - Preliminary NO GROWTH AFTER 3 DAYS 05/28/20 14:45 Aerobic Blood Culture - Preliminary Blood - Arm, Left NO GROWTH AFTER 3 DAYS Anaerobic Blood Culture - Preliminary NO GROWTH AFTER 3 DAYS Med Orders - Current: Current Medications Acetaminophen (Tylenol) 650 mg PO Q4H PRN PRN Reason: Pain (Mild 1-3)/fever Acyclovir (Zovirax) 400 mg PO DAILY [facility] Last Admin: 06/01/20 09:02 Dose: 400 mg Documented by: Albuterol (Proventil Hfa) 0 gm INH QID [facility] Last Admin: 06/01/20 09:04 Dose: 2 puff Documented by: Amitriptyline HCl (Elavil) 50 mg PO BEDTIME [facility] Last Admin: 05/31/20 21:09 Dose: 50 mg Documented by: Aspirin (Halfprin) 81 mg PO DAILY [facility] Last Admin: 06/01/20 09:02 Dose: 81 mg Documented by: Atenolol (Tenormin) 25 mg PO BEDTIME [facility] Last Admin: 05/31/20 21:08 Dose: 25 mg Documented by: Benzonatate (Tessalon Perles) 100 mg PO TID PRN PRN Reason: Cough Last Admin: 05/29/20 10:20 Dose: 100 mg Documented by: Dexamethasone (Decadron) 6 mg IVPUSH DAILY [facility] Stop: 06/06/20 09:01 Last Admin: 06/01/20 09:08 Dose: Not Given Documented by: Docusate Sodium (Colace) 100 mg PO BID PRN PRN Reason: Constipation Last Admin: 05/29/20 15:53 Dose: 100 mg Documented by: Enoxaparin Sodium (Lovenox) 40 mg SUBCUT DAILY [facility] Last Admin: 06/01/20 09:01 Dose: 40 mg Documented by: Famotidine (Pepcid) 40 mg PO DAILY [facility] Last Admin: 06/01/20 09:02 Dose: 40 mg Documented by: Guaifenesin/Codeine Phosphate (Robitussin Ac) 5 ml PO QID [facility] Last Admin: 06/01/20 09:02 Dose: 5 ml Documented by: Remdesivir 100 mg/ Sodium (Chloride) 100 mls @ 100 mls/hr IV Q24H [facility] Stop: 06/01/20 20:59 Last Infusion: 05/31/20 22:36 Dose: Infused Documented by: Levofloxacin/Dextrose 500 mg/ (Premix) 100 mls @ 100 mls/hr IV Q24H [facility] Last Infusion: 05/31/20 17:11 Dose: Infused Documented by: Budesonide [ Pulmicort Flexhaler] 90 Mcg Pt Own Med 90 mcg INH BID [facility] Last Admin: 06/01/20 09:04 Dose: 90 mcg Documented by: Ondansetron HCl (Zofran Odt) 4 mg PO Q4H PRN PRN Reason: nausea, able to take PO Oxycodone HCl (Oxycodone) 5 mg PO Q4H PRN PRN Reason: Pain (moderate 4-6) Last Admin: 05/29/20 15:52 Dose: 5 mg Documented by: Discontinued Medications Al Hydroxide/Mg Hydroxide (Mag-Al Plus) 30 ml PO Q4H PRN PRN Reason: Heartburn Sodium Chloride (Normal Saline) 1,000 mls @ 75 mls/hr IV ASDIRECTED [facility] Last Infusion: 05/29/20 21:50 Dose: Infused Documented by: Remdesivir 200 mg/ Sodium (Chloride) 210 mls @ 210 mls/hr IV ONETIME ONE Stop: 05/28/20 16:33 Last Admin: 05/28/20 17:19 Dose: Not Given Documented by: Remdesivir 200 mg/ Sodium (Chloride) 210 mls @ 210 mls/hr IV ONETIME ONE Stop: 05/28/20 20:59 Last Admin: 05/28/20 19:57 Dose: 210 mls/hr Documented by: Sterile Water (Sterile Water For Injection) Confirm Administered Dose 40 mls @ as directed .ROUTE .STK-MED ONE Stop: 05/28/20 19:34 Last Admin: 05/28/20 19:51 Dose: Not Given Documented by:
== END 2020-06-01 14:35 | disposition home or self-care (01) | DRG 137 ==
LOC: DL.ED 14:23 → DL.MS 15:59
PROVIDERS: ADMIT Internal Medicine; ATTEND Hospitalist
PROC: 8E0ZXY6 Isolation (ICD-10-PCS; principal; 2020-05-28)
PROC: XW033E5 Introduction of Remdesivir Anti-infective into Peripheral Vein, Percutaneous Approach, New Technology Group 5 (ICD-10-PCS; 2020-05-28)
DX: U07.1 COVID-19 (principal); J12.89 Other viral pneumonia; J96.01 Acute respiratory failure with hypoxia; M06.9 Rheumatoid arthritis, unspecified; I10 Essential (primary) hypertension; E78.00 Pure hypercholesterolemia, unspecified; E78.5 Hyperlipidemia, unspecified; K21.9 Gastro-esophageal reflux disease without esophagitis; Z99.81 Dependence on supplemental oxygen; Z79.82 Long term (current) use of aspirin; Z79.899 Other long term (current) drug therapy; Z88.1 Allergy status to other antibiotic agents; Z91.09 Other allergy status, other than to drugs and biological substances; Z88.8 Allergy status to other drugs, medicaments and biological substances; Z90.710 Acquired absence of both cervix and uterus
CPT/HCPCS: 36415; 71045; 80048; 80053; 80076; 81003; 83605; 83615; 83880; 84145; 84484; 85025; 85027; 85379; 85610; 86140; 87040; 99284; 99285; A9270-GY; J1100; J1650; J1956; J7030; J7050

== ENCOUNTER 2022-09-26 17:30 | Emergency (ER) | payer BC, MEDICARE ==
[2022-09-26] MEDS ORDERED: Sodium Chloride 0.9% 10 ML Syringe FLUSH PRN (17:38)
[2022-09-26 18:26] LABS: ANION GAP 13.1 mEq/L (7-13); CHLORIDE,CL 103 mmol/L (98-107); SODIUM,NA 143 mmol/L (136-145)
[2022-09-26 18:27] LABS: ESTIMATED GFR 65 mL/min (>=60)
== END 2022-09-26 18:47 | disposition home or self-care (01) ==
LOC: DL.ED 17:30
DX: R07.89 Other chest pain (principal); E78.00 Pure hypercholesterolemia, unspecified; I10 Essential (primary) hypertension; K21.9 Gastro-esophageal reflux disease without esophagitis; Z88.1 Allergy status to other antibiotic agents; Z88.8 Allergy status to other drugs, medicaments and biological substances; Z91.048 Other nonmedicinal substance allergy status; Z79.899 Other long term (current) drug therapy; Z79.82 Long term (current) use of aspirin; Z86.16 Personal history of COVID-19
CPT/HCPCS: 36415; 80053; 81003; 82150; 83605; 83690; 83735; 84443; 84484; 85025; 85610; 86140; 93005; 93010; 99284; 99285; J3490